=== PATIENT | male | born 1995 | race Caucasian/White ===

== ENCOUNTER 2016-10-31 02:32 | Emergency (ER) | payer SELFPAY ==
[~2016-10-31] VITALS: Ht 172.7 cm; Wt 60.6 kg
[~2016-10-31 02:32] MED LIST: ABILIFY15 MG PO; NAPROSYN500 MG PO
[2016-10-31 03:29] LABS: HEMATOCRIT 40.6 % (38.0-50.0); MCH 32.2 PG (29.0-34.0); MCHC 35.7 G/DL (30.0-36.0); MCV 90.2 FL (86-99); MEAN PLAT.VOLUME 9.4 uM^3 (9.0-12.4); PLATELET COUNT 201 K/uL (156-360); RBC DIS.WIDTH-SD 39.8 % (39-53); WHITE BLOOD COUNT 12.4 K/uL (4.1-10.2)
[2016-10-31] MEDS ORDERED: ATARAX,VISTARIL25 MG PO (03:34)
[2016-10-31 03:38] LABS: CHLORIDE 111 mEq/L (99-109); POTASSIUM 4.2 mEq/L (3.7-5.4); SODIUM 143 mEq/L (136-147)
[2016-10-31 03:40] LABS: GLUCOSE 86 mg/dL (70-99)
[2016-10-31 03:42] LABS: ANION GAP 11 MEQ/L (2-14)
[2016-10-31 03:43] LABS: SERUM ETHYL ALCOHOL < 10 mg/dL
[2016-10-31 03:44] LABS: GFR ESTIMATE (CALCULATED) > 59 mL/min/
[2016-10-31 03:45] LABS: UREA NITROGEN (BUN) 22 mg/dL (9-23)
[2016-10-31 03:52] VITALS: BP 124/88
== END 2016-10-31 03:59 | disposition home or self-care (01) ==
LOC: EME 02:32
PROVIDERS: Emergency Medicine
DX: F41.9 Anxiety disorder, unspecified (principal); F32.9 Major depressive disorder, single episode, unspecified; F16.10 Hallucinogen abuse, uncomplicated; F17.200 Nicotine dependence, unspecified, uncomplicated
CPT/HCPCS: 80048; 85027; 99281; 99284; G0480